=== PATIENT | female | born 1960 | race Caucasian/White ===

== ENCOUNTER → 2019-06-03 | Outpatient (CLI) | payer OTHER ==
[~2019-06-03] MED LIST: ACETAMINOPHEN325 M1 PO; ASPIR-TRIN325 MG PO; COLACE100 MG PO; DHEA 2525 MG PO; FISH OIL 1,001000 M2 PO; Iodoral PO; NEURONTIN 300300 M1 PO; OXYCODONE HCL 55 MG PO; TURMERIC500 MG PO; VITAMINC500 PO; [UNRECOGNIZED DRUG - OTHER] PO; [UNRECOGNIZED DRUG - OTHER] PO
[2019-06-03 14:50] LABS: HEMATOCRIT 38.6 % (37.0-47.0); MCH 31.2 pg (26.0-34.0); MCHC 33.8 g/dL (28.0-37.0); MCV 92.4 fL (80.0-100.0); MPV 8.3 fl. (7.2-11.1); RBC 4.17 mil/uL (4.20-5.00); RDW-CV 13.1 % (10.5-14.5); WBC 4.7 thou/uL (4.0-11.0)
[2019-06-03 15:03] LABS: ALBUMIN 3.8 g/dL (3.4-5.0); CALCIUM 9.1 mg/dL (8.5-10.1); CREATININE 0.7 mg/dL (0.6-1.3); POTASSIUM 4.3 mmol/L (3.5-5.1); TOTAL BILIRUBIN 0.2 mg/dL (<0.1-1.0); TOTAL PROTEIN 7.2 g/dL (6.4-8.2)
== END ==
LOC: M.LAB 14:04
PROVIDERS: Anesthesiology
DX: Z01.812 Encounter for preprocedural laboratory examination (principal)